=== PATIENT | male | born 1970 | race Caucasian/White ===

== ENCOUNTER 2017-03-31 11:36 | Emergency (ER) | payer OTHER ==
[~2017-03-31] VITALS: Ht 177.8 cm; Wt 86.2 kg
[2017-03-31] MEDS ORDERED: ADDERALL 15 MG15 MG PO (11:55)
[2017-03-31] MEDS ORDERED: FLOMAX0.4 MG PO (13:43)
[2017-03-31] MEDS ORDERED: NORCO 10-325 T1 EACH PO (13:43)
== END 2017-03-31 14:05 | disposition home or self-care (01) ==
LOC: ED 11:36
DX: N13.2 Hydronephrosis with renal and ureteral calculous obstruction (principal); F17.200 Nicotine dependence, unspecified, uncomplicated; Z79.899 Other long term (current) drug therapy
CPT/HCPCS: 74176; 80053; 81001; 85025; 96374; 99284; J1885; J7030

== ENCOUNTER 2017-04-07 08:16 | Day surgery (SDC) | payer OTHER ==
[~2017-04-07] VITALS: Ht 177.8 cm; Wt 90.7 kg
[~2017-04-07 08:16] MED LIST: ADDERALL 15 MG15 MG PO; FLOMAX0.4 MG PO; NORCO 10-325 T1 EACH PO
--- NOTE | 2017-04-07 11:15 | NUR ---
PT UP TO THE BR WITH ASSIST. PT AMBULATES WELL. URINE STRAINED WITH NO PASSING OF STONE. VOIDED 350 ML CLEAR YELLOW URINE. NO COMPLAINTS AT THIS TIME. PT BACK IN DS RM 2 WITH CALL LIGHT WITHIN REACH.
--- NOTE | 2017-04-07 12:42 | NUR ---
04/07/17 1242 Nathanael Mast REORIETNED TO TIME AND SITUATION ON ENTRY TO PACU. DENIES NAS[place] OR PAIN INITALLY. THEN REPORTS 2/10 LOWER ABD CRAMPING PAIN. REFUSES OFFER OF PRN MEDICATION FOR PAIN AT THIS POINT.
[2017-04-07] MEDS ORDERED: PERCOCET 5-3251 EACH PO (13:42)
[2017-04-07] MEDS ORDERED: CIPRO500 MG PO (13:43)
--- NOTE | 2017-04-07 14:16 | NUR ---
PT UP TO BR WITH ASSIST, AMBULATES WELL. PT STATES HE WAS ABLE TO EMPY BLADDER AND DENIES ANY PAIN. URINE CONTAINED BLOOD AND WAS RED IN COLOR. PT BACK TO RM 2. FRIEND PRESENT IN ROOM. CALL LIGHT WITHIN REACH.
--- NOTE | 2017-04-07 14:18 | NUR ---
LE 1310: WATER AND COFFEE PROVIDED TO PT. PT DENIES ANY NAUSEA OR PAIN. LE 1320: PUDDING PROVIDED TO PT. PT TOLERATES WELL.
--- NOTE | 2017-04-07 14:46 | NUR ---
DC INSTRUCTIONS GIVEN IN PRESENCE OF PT AND FRIEND, PT VERBALIZES INSTRUCTIONS AND ALL QUESTIONS ARE ANSWERED. SCRIPT GIVEN TO PT TO FILL PERCOCET, CIPRO WAS CALLED INTO [facility] BY RN. ON DC PT DENIES PAIN AND/OR BLADDER SPASMS WITH URINATION. PT DC'D FROM DS ROOM 2 VIA WHEELCHAIR WITH FRIEND.
--- NOTE | 2017-04-11 12:42 | OR ---
[facility] [address] [place], [place] [address] Signed DATE OF OPERATION: 04/07/2017 SURGEON: Yolanda Hernandez MD PREOPERATIVE DIAGNOSES: 1. Left distal ureteral calculi. 2. Multiple nonobstructing right renal calculi. POSTOPERATIVE DIAGNOSES: 1. Left distal ureteral calculus, status post successful trial of passage. 2. Multiple right renal calculi. NAMES OF PROCEDURES: 1. Cystoscopy with bilateral retrograde pyelograms. 2. Left diagnostic ureteroscopy. 3. Insertion of right ureteral stent. ANESTHESIA: General. ESTIMATED BLOOD LOSS: Minimal. COMPLICATIONS: None. SPECIMENS: None. DRAINS: A 6 x 24 cm Contour double-J ureteral stent inserted into the right ureter. INDICATIONS FOR PROCEDURE: Mr. Mckeon is a very pleasant 46-year-old healthy gentleman who presented to my clinic last Keo with a 5-day history of severe intermittent left-sided flank pain. He had previously presented to the emergency department prior to that week and was found to have an approximately 4.5 x 5.5 mm left distal ureteral calculus with associated mild hydronephrosis. He presented to the clinic reporting intermittent bouts of groin pain that had improved in intensity and duration; however, he was concerned that he had not yet passed his stone. After a thorough discussion of risks and benefits of surgery, the Electronically Signed By: YOLANDA HERNANDEZ MD 04/11/17 1242 PATIENT NAME: HAMMAD MCKEON OPERATIVE REPORT DATE OF : 74 PHYSICIAN: YOLANDA HERNANDEZ MD REPORT #: [id number] REPORT IS CONFIDENTIAL AND NOT TO BE RELEASED WITHOUT AUTHORIZATION [facility] [address] [place] [address] [place], [place] [address] Signed patient elected to undergo ureteroscopy with extraction of his left distal ureteral calculus. He also voiced a preference to have his nonobstructing right renal calculi extracted for prophylaxis purposes. OPERATIVE FINDINGS: 1. On cystoscopy, there was no evidence of any suspicious masses, lesions, or stones within the bladder. Bilateral ureteral orifices were in their normal anatomic location. 2. Left retrograde pyelogram was performed, which revealed no evidence of stone in the entire length of the left ureter. Right retrograde pyelogram was performed during attempted placement of the ureteral access sheath on the right side, which revealed no filling defects or abnormality of the right ureter or right kidney. 3. Left diagnostic ureteroscopy revealed no evidence of stone present within the distal half of the left ureter. 4. A 6 x 24 cm Contour double-J ureteral stent was inserted into the right ureter under direct visualization without difficulty. DESCRIPTION OF PROCEDURE: After informed consent was obtained, the patient was taken back to the operating room. He was transferred from the [facility] to the operating room table, where anesthesia was induced. He was placed in the dorsal lithotomy position, and his genitalia was prepped and draped in standard sterile fashion. Using a 30-degree lens on a 22-Indonesian introducer, rigid cystoscope was inserted through his urethra and into his bladder under direct visualization. Panendoscopic views of the bladder were then obtained. Please see the above findings. Attention was turned to the left ureteral orifice. A cone-tipped catheter was passed into the distal left ureter and a left retrograde pyelogram was performed. Please see the above findings. I removed the cone-tipped catheter and inserted a semi-rigid ureteroscope and performed a left diagnostic ureteroscopy. Please see the above findings. Once I had determined that there was no remaining stone within the left ureter, the semi-rigid ureteroscope was removed and a cystoscope was reinserted at this time focusing on the right side. A 0.035 Sensor wire was inserted into the right ureter and up into the right collecting system. Over the wire, I initially passed a 13/15 ureteral access sheath and met significant amount of resistance. I withdrew that sheath and inserted an 11/13 ureteral access sheath, again meeting a good deal of resistance. I performed a retrograde pyelogram through the sheath, which did confirm that the sheath was in the distal ureter; however, I was unable to pass the sheath any further into the proximal ureter. I withdrew the sheath and at this time decided to abort any attempts at ureteroscopy on the right side due to the diminutive caliber of the right ureter. I reinserted a Sensor wire through the sheath and over the wire, I passed a 6 x 24 cm Contour double-J ureteral stent into the right ureter under direct visualization without difficulty. An adequate coil was seen within the right renal pelvis along with an adequate distal coil within the bladder on cystoscopy. The patient's bladder was then drained and the procedure was completed. Electronically Signed By: YOLANDA HERNANDEZ MD 04/11/17 1242 PATIENT NAME: HAMMAD MCKEON OPERATIVE REPORT DATE OF : 74 PHYSICIAN: YOLANDA HERNANDEZ MD REPORT #: [id number] REPORT IS CONFIDENTIAL AND NOT TO BE RELEASED WITHOUT AUTHORIZATION [address] [address] Signed The patient tolerated the procedure well without any complication. He will now be transferred to the postanesthesia care unit in stable condition. DISPOSITION: Mr. Mckeon will be discharged to home later today in stable condition. He was given Percocet 5/325, dispensed #20, as needed for pain along with Cipro 500 mg p.o. b.i.d. for a total of seven days. He will be placed back on the schedule, on April 21, to undergo cystoscopy with right ureteroscopy, laser lithotripsy, and basket extraction of his multiple right renal calculi. MD GEORGETTE Pinedo/COMFORTL /[id number] Electronically Signed By: YOLANDA HERNANDEZ MD 04/11/17 1242 PATIENT NAME: HAMMAD MCKEON OPERATIVE REPORT DATE OF : 74 PHYSICIAN: YOLANDA HERNANDEZ MD REPORT #: [id number] REPORT IS CONFIDENTIAL AND NOT TO BE RELEASED WITHOUT AUTHORIZATION
== END 2017-04-07 14:42 | disposition home or self-care (01) ==
LOC: DS 08:16 → OPS 08:16
PROVIDERS: Urology
PROC: 0T768DZ Dilation of Right Ureter with Intraluminal Device, Via Natural or Artificial Opening Endoscopic (ICD-10-PCS; principal; 2017-04-07 09:30)
PROC: BT14YZZ Fluoroscopy of Kidneys, Ureters and Bladder using Other Contrast (ICD-10-PCS; 2017-04-07 09:30)
DX: N20.2 Calculus of kidney with calculus of ureter (principal); F90.9 Attention-deficit hyperactivity disorder, unspecified type; F17.210 Nicotine dependence, cigarettes, uncomplicated; Z90.49 Acquired absence of other specified parts of digestive tract; Z79.899 Other long term (current) drug therapy
CPT/HCPCS: 00910; 74420; C2617; J0330; J0696; J2250; J2405; J2704; J2765; J3010; J7120; Q9967

== ENCOUNTER 2017-04-21 06:52 | Day surgery (SDC) | payer OTHER ==
[~2017-04-21] VITALS: Ht 177.8 cm; Wt 90.7 kg
[~2017-04-21 06:52] MED LIST changes: +CIPRO500 MG PO; +PERCOCET 5-3251 EACH PO
--- NOTE | 2017-04-21 10:31 | NUR ---
04/21/17 1031 Nathanael Mast MEDICATED FOR 4/10 URINARY BURNING PAIN PER EMR.
[2017-04-21] MEDS ORDERED: LEVAQUIN500 MG PO (11:05)
[2017-04-21] MEDS ORDERED: PERCOCET 5-3251 EACH PO (11:06)
--- NOTE | 2017-04-21 12:57 | NUR ---
1220 UP TO BR VOIDED 300MLS RED URINE. AMB WELL. WANTS TO GO HOME. HAS TAKEN PO WELL. RATES PAIN 0/10. HAS DENIED NEED FOR PAIN MED THRU OUT STAY.
--- NOTE | 2017-04-28 09:01 | OR ---
[facility] [address] [place], [place] [address] Signed DATE OF OPERATION: 04/21/2017 SURGEON: Yolanda Hernandez MD PREOPERATIVE DIAGNOSIS: Right renal calculi. POSTOPERATIVE DIAGNOSIS: Right renal calculi. NAMES OF PROCEDURES: 1. Diagnostic cystoscopy with right ureteral stent exchange. 2. Right retrograde pyelogram. 3. Right flexible nephroureteroscopy with basket extraction of renal calculi. ANESTHESIA: General. ESTIMATED BLOOD LOSS: Minimal. COMPLICATIONS: None. SPECIMENS: Multiple right renal calculi sent to the lab for stone analysis. DRAINS: A 6 x 24 cm contour double-J ureteral stent inserted to the right ureter. INDICATIONS FOR PROCEDURE: Mr. Mckeon is a very pleasant 46-year-old gentleman with no previous history of nephrolithiasis, who presented to my clinic a couple weeks ago with a history of intermittent left-sided flank pain. On a CAT scan, he was found to have a 6 mm distal left ureteral calculus along with 2 to 3 nonobstructing right renal calculi. He underwent surgery last week and was found to have successfully passed his left ureteral calculus. A stent was placed on the right side due to the diminutive size of his ureter and my inability to pass the ureteroscope into the right collecting system. He presents today with an indwelling stent in place to undergo elective extraction of his right renal calculi. Electronically Signed By: YOLANDA HERNANDEZ MD 04/28/17 0901 PATIENT NAME: HAMMAD MCKEON OPERATIVE REPORT DATE OF : 74 REPORT #: [id number] PHYSICIAN: YOLANDA HERNANDEZ MD PCP: NO PRIMARY CARE PHYSICIAN REPORT IS CONFIDENTIAL AND NOT TO BE RELEASED WITHOUT AUTHORIZATION [facility] [address] [place], [place] [address] Signed OPERATIVE FINDINGS: 1. On cystoscopy, there is an indwelling right ureteral stent that is not calcified. There is also some bullous edema around the right ureteral orifice due to the presence of the indwelling stent. The remainder of the cystoscopy was within normal limits. 2. Right retrograde pyelogram was performed multiple times to confirm placement of the sheath during the procedure. There was no evidence of any filling defects within the ureter or any other abnormalities during the retrograde pyelogram. 3. I was able to extract approximately 2 to 3 mm stones. One stone was larger at around 4 mm. I did not appreciate any remaining stones within any of the calices once these stones were extracted. There were a couple of very small punctate stones present over the papillae that I was unable to grasp it with my Zero tip basket. 4. A 6 x 24 cm stent was exchanged into the right ureter without difficulty. DESCRIPTION OF PROCEDURE: After informed consent was obtained, the patient was taken back to the operating room. He was transferred from the [facility] to the operating room table, where general anesthesia was induced. He was placed in dorsal lithotomy position and his genitalia prepped and draped in standard sterile fashion. Using a 30-degree lens on a 22-Guinean introducer, rigid cystoscope was inserted through his urethra into his bladder under direct visualization. Panendoscopy views of bladder then obtained. Please see above findings. I then turned my attention to the indwelling right ureteral stent, which was removed to the level of the urethral meatus with a stent grasper. I passed a 0.035 Sensor wire into the lumen of the stent up into the right renal pelvis. Thus, the indwelling stent was removed, fully intact. Over the wire, I passed an 01/06 ureteral access sheath into the right ureter under fluoroscopic guidance. A right retrograde pyelogram was then performed to confirm placement of the sheath. I then inserted a flexible ureteroscope into the sheath up through the ureter and into the right kidney and a complete flexible nephroscopy was performed. I identified approximately 3 stones and along with some stone fragments as well. I was able to extract these stones without the use of laser fragmentation. They were extracted in toto and placed in a specimen cup to be sent to the lab for stone analysis. Once I was satisfied that all the stones had been extracted, I removed the flexible ureteroscope and passed a Sensor wire through the sheath and into the right renal pelvis. Of note, the sheath was removed with a large stone within it as it was unable to pass through the sheath, so I removed the sheath entirely. I then inserted a rigid cystoscope and attempted to pass a wire blindly into the right ureter. I met with some resistance. After multiple attempts, I decided to pass a wire using the help of a semi-rigid ureteroscope. I inserted a semi-rigid ureteral scope into the patient's bladder and up into the right distal ureter. There was a very small perforation in the transmural ureter where the wire had gone in instead of the true lumen of the ureter. With the semi-rigid ureteroscope and I advanced the scope further into the ureter and passed a Sensor wire again, which passed up into the Electronically Signed By: YOLANDA HERNANDEZ MD 04/28/17 0901 PATIENT NAME: HAMMAD MCKEON OPERATIVE REPORT DATE OF : 74 REPORT #: [id number] PHYSICIAN: YOLANDA HERNANDEZ MD PCP: NO PRIMARY CARE PHYSICIAN REPORT IS CONFIDENTIAL AND NOT TO BE RELEASED WITHOUT AUTHORIZATION [facility] [address] [place] [address] Signed right renal pelvis. Once the Sensor wire was in the right renal pelvis, I removed the semi-rigid ureteroscope. Over the wire, a 6 x 24 cm contour double-J ureteral stent was passed into the right collecting system. Once both adequate coils were appreciated on cystoscopy and on fluoroscopy, the patient's bladder was then drained. The cystoscope was then removed. The procedure was terminated. The patient tolerated the procedure well without any complication. He will now be transferred to the postanesthesia care unit in stable condition. DISPOSITION: Mr. Mckeon will be discharged to home later this morning in stable condition. I was unable to find his brother earlier, but I will try to find him again to discuss the results of the procedure. He will be sent home with Percocet 5/325 dispense #30 as needed for pain along with Levaquin 500 mg p.o. daily for a total of 10 days. He will be scheduled to return to clinic on May 08 at 9 a.m. to undergo cystoscopy with right ureteral stent extraction. At that time, we will discuss the results of his stone analysis. MD GEORGETTE Pinedo/LOUISE /[id number] Copies: ~ Electronically Signed By: YOLANDA HERNANDEZ MD 04/28/17 0901 PATIENT NAME: HAMMAD MCKEON OPERATIVE REPORT DATE OF : 74 REPORT #: [id number] PHYSICIAN: YOLANDA HERNANDEZ MD PCP: NO PRIMARY CARE PHYSICIAN REPORT IS CONFIDENTIAL AND NOT TO BE RELEASED WITHOUT AUTHORIZATION
== END 2017-04-21 12:50 | disposition home or self-care (01) ==
LOC: OPS 06:52 → DS 08:15 → OPS 08:15 → DS 11:31 → OPS 12:50
PROVIDERS: Urology
PROC: 0TP98DZ Removal of Intraluminal Device from Ureter, Via Natural or Artificial Opening Endoscopic (ICD-10-PCS; 2017-04-21)
PROC: 0TC68ZZ Extirpation of Matter from Right Ureter, Via Natural or Artificial Opening Endoscopic (ICD-10-PCS; principal; 2017-04-21 08:15)
PROC: 0T768DZ Dilation of Right Ureter with Intraluminal Device, Via Natural or Artificial Opening Endoscopic (ICD-10-PCS; 2017-04-21 08:15)
PROC: BT1DYZZ Fluoroscopy of Right Kidney, Ureter and Bladder using Other Contrast (ICD-10-PCS; 2017-04-21 08:15)
DX: N20.0 Calculus of kidney (principal); F90.9 Attention-deficit hyperactivity disorder, unspecified type; Z79.899 Other long term (current) drug therapy; Z90.49 Acquired absence of other specified parts of digestive tract
CPT/HCPCS: 00910; 76000; 82365; C2617; J0330; J0696; J1885; J2250; J2405; J2704; J3010; J7120

== ENCOUNTER 2022-01-08 04:22 | Emergency (ER) | payer OTHER ==
[~2022-01-08] VITALS: Ht 177.8 cm; Wt 90.7 kg
[~2022-01-08 04:22] MED LIST changes: +LEVAQUIN500 MG PO
--- OUTSIDE RECORDS SUMMARY | 2022-01-08 04:26 | XMS ---
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 Chavo VISIT COUNT (12 MO.) 1 M[facility]iso TOTAL 1 NOTE: Visits indicate total known visits. ED/UCC VISIT TRACKING (12 MO.) 01/08/2022 04:23 MULU [facility] OR TYPE: Emergency COMPLAINT: - LEFT FLANK PAIN INPATIENT VISIT TRACKING (12 MO.) No inpatient visits to display in this time frame [email or web address]
[2022-01-08] MEDS ORDERED: ADDERALL XR 3030 MG PO (04:42)
[2022-01-08] MEDS ORDERED: ZOLPIDEM TART12.5 MG PO (04:42)
== END 2022-01-08 07:47 | disposition home or self-care (01) ==
LOC: ED 04:22
DX: N13.2 Hydronephrosis with renal and ureteral calculous obstruction (principal); F17.200 Nicotine dependence, unspecified, uncomplicated; Z79.899 Other long term (current) drug therapy
CPT/HCPCS: 36415; 74176; 80053; 81001; 83690; 85025; 96374; 99284-25; A9270; J1885; J7121